=== PATIENT | male | born 1960 | race African-American/Black ===

== ENCOUNTER 2017-06-13 00:32 | Emergency (ER) | payer MEDICARE ==
[~2017-06-13] VITALS: Ht 175.3 cm; Wt 70.0 kg
[~2017-06-13 00:32] MED LIST: CLON2TAB PO; ZOLP10TA PO
[2017-06-13 00:33] VITALS: BP 150/94
== END 2017-06-13 01:08 | disposition home or self-care (01) ==
LOC: ED 00:45
DX: F43.0 Acute stress reaction (principal); Z76.0 Encounter for issue of repeat prescription; Z72.9 Problem related to lifestyle, unspecified; Z88.6 Allergy status to analgesic agent; Z88.8 Allergy status to other drugs, medicaments and biological substances; Z59.0 Homelessness
CPT/HCPCS: 99284

== ENCOUNTER 2018-03-04 23:19 | Inpatient (IN) | payer OTHER, MEDICARE, MEDICAID ==
[~2018-03-04] VITALS: Ht 175.3 cm; Wt 59.3 kg
--- NOTE | 2018-03-04 23:23 | NUR ---
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
--- NOTE | 2018-03-04 23:24 | NUR ---
RECEIVED REPORT FROM [facility] PATIENT C/O CP STARTED AROUND 0. NITRO 0.4 SL X 3, ASPIRIN 324 MG. 4 [facility] REPRESENTATIVE.
[2018-03-04] MEDS ORDERED: NITROGLYCERIN OINT 2%, 1GM TP ONE (23:30)
[2018-03-04] MEDS ORDERED: MIDAZOLAM 1 MG/ML, 5ML ONE (23:41)
[2018-03-04] MEDS ORDERED: FENTANYL PF 100 MCG/2ML ONE (23:41)
[2018-03-04 23:42] LABS: MEAN CORPUSCULAR HEMOGLOBIN 29.7 pg (27.5-34.5); MEAN CORPUSCULAR HGB CONC 32.2 g/dL (33.2-36.2); MEAN CORPUSCULAR VOLUME 92.4 fL (81-97); MEAN PLATELET VOLUME 7.7 fL (7.4-10.4); PLATELET COUNT 392 x10^3/uL (130-400); RED BLOOD COUNT 4.08 x10^6/uL (4.38-5.82); RED CELL DISTRIBUTION WIDTH 16.6 % (9.4-14.8)
[2018-03-04] MEDS ORDERED: LIDOCAINE 2%, 20ML ONE (23:42)
[2018-03-04] MEDS ORDERED: TICAGRELOR 90 MG TABLET ONE (23:42)
[2018-03-04] MEDS ORDERED: BIVALIRUDIN 250 MG ONE (23:42)
[2018-03-04] MEDS ORDERED: VERAPAMIL 2.5 MG/ML, 2ML ONE (23:42)
[2018-03-04] MEDS ORDERED: HEPARIN 1,000 UNITS/ML, 10ML ONE (23:42)
[2018-03-04 23:49] LABS: INTERNATIONAL NORMALIZED RATIO 1.01 (0.93-1.1); PROTHROMBIN TIME 10.7 Seconds (9.6-11.5)
--- NOTE | 2018-03-04 23:55 | NUR ---
PATIENT TO APPEALS ANALYST.
[2018-03-05 00:01] LABS: TROPONIN I < 0.015 ng/mL (0.000-0.045)
[2018-03-05 00:02] LABS: BASOPHILS # (AUTO) 0.02 x10^3/uL (0-0.1); BASOPHILS % (AUTO) 1 % (0-1); EOSINOPHILS # (AUTO) 0.04 x10^3/uL (0-0.4); EOSINOPHILS % (AUTO) 1 % (1-7); LYMPHOCYTES # (AUTO) 1.26 x10^3/uL (1-3.4); LYMPHOCYTES % (AUTO) 30 % (22-44); MONOCYTES # (AUTO) 0.44 x10^3/uL (0.2-0.8); MONOCYTES % (AUTO) 10 % (2-9); NEUTROPHILS # (AUTO) 2.48 x10^3/uL (1.8-6.8); NEUTROPHILS % (AUTO) 59 % (42-75)
[2018-03-05 00:25] LABS: MD SCAN
[2018-03-05] MEDS ORDERED: ZOLPIDEM 5MG TABLET PO PRN (00:30)
[2018-03-05] MEDS ORDERED: ACETAMINOPHEN 325 MG TABLET PO PRN (00:30)
[2018-03-05 00:45] VITALS: BP 118/76
[2018-03-05] MEDS: SODIUM CHLORIDE 0.9% 1,000 ML IV SCH ×2 (01:26→08:03)
[2018-03-05] MEDS: MORPHINE SULFATE 4 MG/ML, 1ML IVPush PRN ×2 (01:27→05:45)
[2018-03-05 02:00] VITALS: BP 118/76
[2018-03-05 07:48] VITALS: BP 121/78
[2018-03-05 10:57] LABS: ANION GAP 6 mmol/L (5-15); CALCIUM 8.3 mg/dL (8.5-10.1); CHLORIDE 104 mmol/L (98-107)
[2018-03-05 10:59] LABS: CREATININE 0.69 mg/dL (0.7-1.3)
[2018-03-05 12:15] VITALS: BP 120/71
== END 2018-03-05 14:16 | disposition home or self-care (01) | DRG 287 ==
LOC: ED 23:34 → EDIP 23:51 → 5SO 03-05 00:43
PROVIDERS: ADMIT Internal Medicine Cardiovascular Disease; ATTEND Internal Medicine Cardiovascular Disease
PROC: 4A023N7 Measurement of Cardiac Sampling and Pressure, Left Heart, Percutaneous Approach (ICD-10-PCS; principal; 2018-03-05)
PROC: B2111ZZ Fluoroscopy of Multiple Coronary Arteries using Low Osmolar Contrast (ICD-10-PCS; 2018-03-05)
PROC: B2151ZZ Fluoroscopy of Left Heart using Low Osmolar Contrast (ICD-10-PCS; 2018-03-05)
DX: R07.9 Chest pain, unspecified (principal); F12.90 Cannabis use, unspecified, uncomplicated; F17.210 Nicotine dependence, cigarettes, uncomplicated; I10 Essential (primary) hypertension; R94.31 Abnormal electrocardiogram [ECG] [EKG]
CPT/HCPCS: 0399T; 36415; 71045; 80047; 80048; 84484; 85025; 85610; 85730; 93005; 93306; 93458; 99156; 99291; C1760; C1769; C1894; J0583; J1644; J2250; J3010; J3490; J7030; Q9967